=== PATIENT | male | born 1990 | race Caucasian/White ===

== ENCOUNTER 2019-11-19 14:34 | Emergency (ER) | payer SELFPAY ==
[2019-11-19] MEDS ORDERED: NORMAL SALINE 1000 ML 1,000 ML IV ONE (15:12)
[2019-11-19] MEDS ORDERED: ACETAMINOPHEN 325 MG TABLET PO ONE (15:15)
[2019-11-19 15:33] LABS: ABSOLUTE BASOPHILS # (AUTO) 0.1 10^3/uL (0.0-0.2); ABSOLUTE LYMPHOCYTES (AUTO) 1.9 10^3/uL (0.5-4.7); ABSOLUTE MONOCYTES (AUTO) 0.8 10^3/uL (0.1-1.4); BASOPHILS % (AUTO) 0.6 % (0-2); EOSINOPHILS % (AUTO) 0.2 % (0-6); HEMATOCRIT 43.3 % (37.9-51.0); HEMOGLOBIN 15.1 g/dL (13.5-17.0); LYMPHOCYTES % (AUTO) 17.6 % (13-45); MEAN CORPUSCULAR HEMOGLOBIN 29.1 pg (27.0-33.4); MEAN CORPUSCULAR VOLUME 83 fl (80-97); MONOCYTES % (AUTO) 7.1 % (3-13); PLATELET COUNT 222 10^3/uL (150-450); RED BLOOD COUNT 5.21 10^6/uL (4.35-5.55); RED CELL DISTRIBUTION WIDTH 14.3 % (11.5-14.0); SEGMENTED NEUTROPHILS % (AUTO) 74.5 % (42-78); TOTAL CELLS COUNTED % (AUTO) 100 %; WHITE BLOOD COUNT 10.8 10^3/uL (4.0-10.5)
--- NOTE | 2019-11-19 15:35 | RADIOLOGY REPORT (SQ) ---
EXAM DESCRIPTION: CHEST SINGLE VIEW IMAGES COMPLETED DATE/TIME: 11/19/2019 3:25 pm REASON FOR STUDY: fever COMPARISON: None. EXAM PARAMETERS: NUMBER OF VIEWS: One view. TECHNIQUE: Single frontal radiographic view of the chest acquired. RADIATION DOSE: NA LIMITATIONS: None. FINDINGS: LUNGS AND PLEURA: No opacities, masses or pneumothorax. No pleural effusion. MEDIASTINUM AND HILAR STRUCTURES: No masses. Contour normal. HEART AND VASCULAR STRUCTURES: Heart normal in size. Normal vasculature. BONES: No acute findings. HARDWARE: None in the chest. OTHER: No other significant finding. IMPRESSION: NO ACUTE RADIOGRAPHIC FINDING IN THE CHEST. TECHNICAL DOCUMENTATION: JOB ID: [id number] 2010 [employer]- All Rights Reserved Reading location - IP/workstation name: [email or web address]
[2019-11-19 15:53] LABS: ALBUMIN 4.5 g/dL (3.5-5.0); ALKALINE PHOSPHATASE 70 U/L (38-126); ANION GAP 9 (5-19); APPEARANCE,URINE CLOUDY; ASPARTATE AMINO TRANSFERASE 20 U/L (17-59); BILIRUBIN,DIRECT 0.3 mg/dL (0.0-0.4); BILIRUBIN,TOTAL 0.7 mg/dL (0.2-1.3); BILIRUBIN,URINE NEGATIVE (NEGATIVE); BLOOD UREA NITROGEN 14 mg/dL (7-20); CALCIUM 9.6 mg/dL (8.4-10.2); CARBON DIOXIDE 24 mmol/L (22-30); CHLORIDE 107 mmol/L (98-107); COLOR,URINE YELLOW; GLUCOSE 115 mg/dL (75-110); GLUCOSE, URINE NEGATIVE (NEGATIVE); KETONES,URINE NEGATIVE (NEGATIVE); POTASSIUM 4.1 mmol/L (3.6-5.0); PROTEIN,URINE NEGATIVE (NEGATIVE); TOTAL PROTEIN 7.2 g/dL (6.3-8.2); URINE SPECIFIC GRAVITY 1.011; UROBILINOGEN,URINE NEGATIVE mg/dL (<2.0)
--- NOTE | 2019-11-19 16:00 | ER Document Report ---
ED Fever - General Stated Complaint: FEVER,WEAKNESS Time Seen by Provider: 11/19/19 14:52 Notes: Patient is a 29-year-old male who presents emergency department with a fever. Patient states that he was at [facility] for detox from fentanyl. Patient states that this morning he woke up feeling well. He ate breakfast and around lunchtime he was able to eat lunch and then began to feel weak. He had a temperature of 101.9 at [facility]. He was then referred here to the emergency department. Past Medical History - General Information source: Patient - Social History Smoking Status: Current Every Day Smoker Frequency of alcohol use: None Drug Abuse: Heroin, Marijuana, Other Family History: Reviewed & Not Pertinent Patient has homicidal ideation: No Past Surgical History: Reports: Orthopedic Surgery Review of Systems - Review of Systems Notes: REVIEW OF SYSTEMS: CONSTITUTIONAL : Denies recent illness. Denies recent unintentional weight loss. See HPI. EENT: Denies eye, ear, throat, or mouth pain, discharge, or symptoms. Denies nasal or sinus congestion. CARDIOVASCULAR: Denies chest pain. RESPIRATORY: Denies shortness of breath, cough, congestion, difficulty breathing, or wheezing. GASTROINTESTINAL: Denies nausea, vomiting, and diarrhea. Denies abdominal pain. Denies constipation. GENITOURINARY: Denies difficulty urinating, burning, blood in urine, urgency or frequency. MUSCULOSKELETAL: Denies neck and back pain. Denies joint pain or swelling. SKIN: Denies rash, itchiness, or lesions HEMATOLOGIC : Denies easy bruising or bleeding. LYMPHATIC: Denies swollen, painful, enlarged glands. NEUROLOGICAL: See HPI. Denies headache. Denies altered mental status. Denies alteration in speech. PSYCHIATRIC: Denies stress, anxiety, alteration in sleep patterns, or depression. All other systems reviewed and negative. Physical Exam - Vital signs Vitals: Temp Pulse Resp BP Pulse Ox 100.4 F 50 L 15 116/55 L 97 11/19/19 15:27 11/19/19 15:27 11/19/19 15:27 11/19/19 15:27 11/19/19 15:27 - Notes Notes: PHYSICAL EXAMINATION: GENERAL: Appears well, healthy, well-nourished, no acute distress. HEAD: Normocephalic, atraumatic. EYES: PERRL, conjunctiva normal, all extraocular movements intact, sclera nonicteric ENT: Moist mucous membranes. NECK: Supple, no noticeable swelling, redness, rash. Normal range of motion. LUNGS: Equal breath sounds bilaterally and clear to auscultation. No wheezes rales or rhonchi. CARDIOVASCULAR: S1-S2, regular rate, regular rhythm. Radial pulses 2+, normal. ABDOMEN: Normoactive bowel sounds. Soft, nontender, no guarding, no rebound tenderness, and no masses palpated. EXTREMITIES: Normal strength and range of motion, no pitting or edema. No cyanosis. NEUROLOGICAL: Moves all extremities upon command. Strength 5/5 in all extremities. PSYCH: Normal mood, normal affect. SKIN: Warm, dry. No rash, lesions, ulcerations noted. Normal skin turgor. Course - Re-evaluation Re-evalutation: 11/19/19 17:19 Hematology is unremarkable. Chemistries are also unremarkable. Urinalysis is normal. Patient was positive for opiates and marijuana, which he admitted to, which is why he was at [facility]. Rapid strep test is negative and chest x-ray is also negative. Patient looks remarkably better as compared to my initial exam. Patient is tolerating p.o. fluids with no difficulty. Patient is to go back to [facility] to get his belongings. The patient was evaluated during the global COVID-19 pandemic and that diagnosis was suspected/considered upon their initial presentation. Their evaluation, treatment and testing was consistent with current guidelines for patients who present with complaints or symptoms that may be related to COVID-19. They are they will discuss plan of care. Follow-up precautions were given. Verbal discharge instructions were given to the patient. They verbalized understanding. They are stable for discharge. - Vital Signs Vital signs: Temp Pulse Resp BP Pulse Ox 100.0 F 107 H 16 130/62 H 98 11/19/19 17:53 11/19/19 17:53 11/19/19 17:53 11/19/19 17:53 11/19/19 17:53 - Laboratory Result Diagrams: 11/19/19 15:10 11/19/19 15:10 Laboratory results interpreted by me: 11/19/19 11/19/19 11/19/19 15:10 15:10 15:10 WBC 10.8 H RDW 14.3 H Glucose 115 H Urine Ascorbic Acid 20 H Discharge - Discharge Clinical Impression: Dehydration Fever Qualifiers: Fever type: unspecified Qualified Code(s): R50.9 - Fever, unspecified Condition: Stable Disposition: HOME, SELF-CARE Instructions: COVID-19 Guidance for Persons Under Investigation Additional Instructions: You were seen today in the emergency department for a fever. You were dehydrated. Please go to [facility] crisis center to get your belongings. They will also get your medications to help you withdrawals. You are also being tested for COVID-19. The health department will call you with the results. Please quarantine at home until your results come back. If they are positive, you must stay in quarantine for at least 2 weeks. Make sure you stay well-hydrated. Drink plenty of fluids.
[2019-11-19 16:36] LABS: URINE AMPHETAMINES SCREEN NEGATIVE; URINE BARBITURATES SCREEN NEGATIVE; URINE BENZODIAZEPINES SCREEN NEGATIVE; URINE COCAINE SCREEN NEGATIVE; URINE METHADONE SCREEN NEGATIVE; URINE PHENCYCLIDINE SCREEN NEGATIVE
[2019-11-19 16:37] LABS: URINE MARIJUANA (THC) SCREEN UNCONFIRMED POSITIVE
[2019-11-19 18:02] VITALS: BP 130/62
== END 2019-11-19 18:23 | disposition home or self-care (01) ==
LOC: ER 14:34
DX: R50.9 Fever, unspecified (principal); E86.0 Dehydration; R53.1 Weakness; F17.200 Nicotine dependence, unspecified, uncomplicated; F11.10 Opioid abuse, uncomplicated; F12.10 Cannabis abuse, uncomplicated; Z20.828 Contact with and (suspected) exposure to other viral communicable diseases
CPT/HCPCS: 99284; 96360; 96361; 36415; 87040; 87070; 87880; 85025; 87635; 87077; 80053; 81001; 80307; 87150 ×26; 71045; J7030; C9803; 87186

== ENCOUNTER 2019-11-22 12:59 | Emergency (ER) | payer SELFPAY ==
--- NOTE | 2019-11-22 14:19 | ER Document Report ---
HPI - HPI Time Seen by Provider: 11/22/19 14:12 Context: Patient is a 29-year-old male with a history of drug abuse who presents the emergency department after positive blood cultures. This was only in 1 bottle. The other culture did not show any growth. Patient denies any symptoms. He was called the other day and was told to come back to the emergency department for further evaluation. I was actually the provider who saw him the other day. He looks much better than he did 3 days ago. That that day the patient had a fever over at [facility]. He did not have a fever, nor did he have a fever from then on. - ROS Systems Reviewed and Negative: Yes All other systems reviewed and negative - CONSTITUTIONAL Constitutional: DENIES: Fever, Chills - EENT EENT: DENIES: Sore Throat, Ear Pain, Nasal Drainage-Clear, Congestion, Eye problems - NEURO Neurology: DENIES: Headache, Weakness, Vision blurred - CARDIOVASCULAR Cardiovascular: DENIES: Chest pain - RESPIRATORY Respiratory: DENIES: Trouble Breathing, Coughing - GASTROINTESTINAL Gastrointestinal: DENIES: Abdominal Pain - URINARY Urinary: DENIES: Dysuria - MUSCULOSKELETAL Musculoskeletal: DENIES: Extremity pain - DERM Skin Color: Normal Skin Problems: None Past Medical History - Social History Smoking Status: Current Every Day Smoker Family History: Reviewed & Not Pertinent Past Surgical History: Reports: Hx Orthopedic Surgery Vertical Provider Document - CONSTITUTIONAL Agree With Documented VS: Yes Exam Limitations: No Limitations General Appearance: No Apparent Distress - HEENT HEENT: Atraumatic, Normocephalic, PERRLA - NECK Neck: Normal Inspection - RESPIRATORY Respiratory: Breath Sounds Normal, No Respiratory Distress - CARDIOVASCULAR Cardiovascular: Regular Rate, Regular Rhythm Pulses: Normal: Radial - MUSCULOSKELETAL/EXTREMETIES Musculoskeletal/Extremeties: FROM - NEURO Level of Consciousness: Awake, Alert, Appropriate Motor/Sensory: No Motor Deficit, No Sensory Deficit - DERM Integumentary: Warm, Dry, No Rash Course - Re-evaluation Re-evalutation: 11/22/19 14:21 Patient looks remarkably better compared to when I first saw him 3 days ago. Lung sounds are clear. Patient is alert and oriented. I have a low suspicion for any life-threatening etiology at this time. Follow-up precautions were given. Verbal discharge instructions were given to the patient. They verbalized understanding. They are stable for discharge. Discharge - Discharge Clinical Impression: Abnormal laboratory test Condition: Stable Disposition: HOME, SELF-CARE Additional Instructions: You were seen today in the emergency department for follow-up of your blood cultures. The other culture did not show anything. Your vital signs are stable. Follow-up with a primary care provider in regards to this visit. Please continue with your doing for your recovery.
[2019-11-22 14:24] VITALS: BP 128/75
== END 2019-11-22 14:21 | disposition home or self-care (01) ==
LOC: ER 12:59
DX: R78.81 Bacteremia (principal)
CPT/HCPCS: 99282